=== PATIENT | female | born 1985 | race Caucasian/White ===

== ENCOUNTER 2017-06-27 21:00 | Emergency (ER) | payer OTHER ==
[~2017-06-27] VITALS: Ht 157.5 cm; Wt 62.7 kg
[~2017-06-27 21:00] MED LIST: ACNE MED; AMOXICILLIN 8751 TAB PO; ANTIVERT 12.512.5 MG PO; BIRTH CONTROL; BUSPAR5 MG; CELEXA 20MG20 MG/TAB PO; CYMBALTA 60MG60 MG PO; FLEXERIL 1010 MG/TAB PO; LAMISIL250 MG PO; NICODERM C14 MG/PATC TOP; NORCO 325 MG-51 TAB PO; PHENERGAN 25 TA25 MG PO; ULTRAM 50MG TAB50 MG PO; VALIUM 10MG10 MG/TAB; VALIUM 5MG T5 MG/TAB PO; ZITHROMAX 250M250 MG PO; ZITHROMAX TRI-500 MG; [UNRECOGNIZED DRUG - REMARK]; [UNRECOGNIZED DRUG - REMARK]
[2017-06-27 21:03] VITALS: BP 112/63; TEMP 97.8
[2017-06-27] MEDS ORDERED: CELEBREX 1100 MG/CAP PO (21:05)
[2017-06-27] MEDS ORDERED: ALDACTONE 25MG25 M1 PO (21:05)
[2017-06-27] MEDS ORDERED: TOPAMAX 100MG100 M1 PO (21:06)
[2017-06-27 21:28] LABS: COLLECTION METHOD CLEAN CATCH
[2017-06-27 21:38] LABS: MUCOUS Present /lpf; PH 5 (5-8); URINE APPEARANCE Hazy; URINE BACTERIA None Seen /hpf; URINE BILIRUBIN Negative (NEGATIVE); URINE BLOOD Negative (NEGATIVE); URINE COLOR Yellow; URINE GLUCOSE Negative (NEGATIVE); URINE KETONE Trace (NEGATIVE); URINE LEUKOCYTE ESTERASE 1+ (NEGATIVE); URINE NITRATE Negative (NEGATIVE); URINE PROTEIN(semi-quant) 1+ (NEGATIVE); URINE RBC 0-2 /hpf
[2017-06-27] MEDS ORDERED: MACROBID 1100 MG/CAP PO (22:27)
[2017-06-27 22:47] VITALS: PULSE 85
== END 2017-06-27 22:48 | disposition home or self-care (01) ==
LOC: COL.ER 21:00
PROVIDERS: Nurse Practitioner Primary Care
DX: N39.0 Urinary tract infection, site not specified (principal); F41.9 Anxiety disorder, unspecified; G43.909 Migraine, unspecified, not intractable, without status migrainosus; M79.7 Fibromyalgia; F17.210 Nicotine dependence, cigarettes, uncomplicated; Z90.49 Acquired absence of other specified parts of digestive tract; Z90.710 Acquired absence of both cervix and uterus; Z87.42 Personal history of other diseases of the female genital tract

== ENCOUNTER 2017-08-22 20:26 | Emergency (ER) | payer OTHER ==
[~2017-08-22] VITALS: Ht 157.5 cm; Wt 59.1 kg
[~2017-08-22 20:26] MED LIST changes: +ALDACTONE 25MG25 M1 PO; +CELEBREX 1100 MG/CAP PO; +MACROBID 1100 MG/CAP PO; +TOPAMAX 100MG100 M1 PO
[2017-08-22 20:28] VITALS: BP 99/49; TEMP 97.6
[2017-08-22 20:39] LABS: COLLECTION METHOD CLEAN CATCH
[2017-08-22 20:47] LABS: MUCOUS Present /lpf; PH 7 (5-8); SQUAMOUS EPITHELIAL None Seen /hpf; URINE APPEARANCE Cloudy; URINE BACTERIA None Seen /hpf; URINE BILIRUBIN Negative (NEGATIVE); URINE BLOOD 3+ (NEGATIVE); URINE COLOR Yellow; URINE GLUCOSE Negative (NEGATIVE); URINE KETONE Trace (NEGATIVE); URINE LEUKOCYTE ESTERASE 3+ (NEGATIVE); URINE NITRATE Negative (NEGATIVE); URINE PROTEIN(semi-quant) 2+ (NEGATIVE); URINE RBC >50 /hpf; URINE UROBILINOGEN >=4.0 mg/dL (NEGATIVE)
[2017-08-22] MEDS ORDERED: MACROBID 1100 MG/CAP PO (20:59)
[2017-08-22 21:15] VITALS: PULSE 69
== END 2017-08-22 21:16 | disposition home or self-care (01) ==
LOC: COL.ER 20:26
PROVIDERS: Family Medicine
DX: N30.90 Cystitis, unspecified without hematuria (principal); Z90.710 Acquired absence of both cervix and uterus

== ENCOUNTER 2017-09-09 17:41 | Emergency (ER) | payer OTHER ==
[~2017-09-09] VITALS: Ht 157.5 cm; Wt 58.2 kg
[2017-09-09 17:45] VITALS: BP 119/69; TEMP 98.3
[2017-09-09 17:59] LABS: COLLECTION METHOD CLEAN CATCH
[2017-09-09 18:27] LABS: MUCOUS Present /lpf; PH 5 (5-8); URINE APPEARANCE Clear; URINE BACTERIA None Seen /hpf; URINE BILIRUBIN Negative (NEGATIVE); URINE BLOOD Negative (NEGATIVE); URINE COLOR Amber; URINE GLUCOSE Negative (NEGATIVE); URINE KETONE Negative (NEGATIVE); URINE LEUKOCYTE ESTERASE Trace (NEGATIVE); URINE NITRATE Positive (NEGATIVE); URINE PROTEIN(semi-quant) 1+ (NEGATIVE); URINE UROBILINOGEN >=4.0 mg/dL (NEGATIVE)
[2017-09-09] MEDS ORDERED: CEFTIN500 MG PO (18:42)
[2017-09-09 19:09] VITALS: PULSE 76
== END 2017-09-09 19:10 | disposition home or self-care (01) ==
LOC: COL.ER 17:41
PROVIDERS: Nurse Practitioner
DX: N39.0 Urinary tract infection, site not specified (principal); F32.9 Major depressive disorder, single episode, unspecified; F41.9 Anxiety disorder, unspecified; F17.210 Nicotine dependence, cigarettes, uncomplicated; Z90.89 Acquired absence of other organs; Z90.710 Acquired absence of both cervix and uterus; Z88.8 Allergy status to other drugs, medicaments and biological substances

== ENCOUNTER 2017-09-18 15:28 | Emergency (ER) | payer OTHER ==
[~2017-09-18] VITALS: Ht 157.5 cm; Wt 58.2 kg
[~2017-09-18 15:28] MED LIST changes: +CEFTIN500 MG PO
[2017-09-18 15:33] VITALS: BP 127/69; PULSE 97; TEMP 99.7
[2017-09-18] MEDS ORDERED: ZANTAC 7575 MG PO (15:52)
[2017-09-18] MEDS ORDERED: PROAIR HFA0.09 MG/AC IH (16:02)
[2017-09-18] MEDS ORDERED: TESSALON P100 MG/CAP PO (16:03)
== END 2017-09-18 16:10 | disposition home or self-care (01) ==
LOC: COL.ER 15:28
DX: J40 Bronchitis, not specified as acute or chronic (principal); Z87.891 Personal history of nicotine dependence